=== PATIENT | male | born 1995 | race Hispanic/Latino ===

== ENCOUNTER 2018-03-28 08:33 | Emergency (ER) | payer SELFPAY | END 2018-03-28 10:38 | disposition home or self-care (01) | LOC: EDH 08:33 | DX: S93.491A Sprain of other ligament of right ankle, initial encounter (principal); S83.8X1A Sprain of other specified parts of right knee, initial encounter; E11.9 Type 2 diabetes mellitus without complications; Z88.0 Allergy status to penicillin; Z98.890 Other specified postprocedural states; Z72.0 Tobacco use; X50.9XXA Other and unspecified overexertion or strenuous movements or postures, initial encounter; Y93.89 Activity, other specified; Y92.89 Other specified places as the place of occurrence of the external cause; Y99.8 Other external cause status | CPT/HCPCS: 73562; 73610 ==

== ENCOUNTER 2018-04-09 23:17 | Emergency (ER) | payer SELFPAY ==
[2018-04-09] MEDS ORDERED: IBUPROFEN 600 MG TABLET ONE (23:38)
== END 2018-04-10 00:20 | disposition home or self-care (01) ==
LOC: EDH 23:17
DX: S43.491A Other sprain of right shoulder joint, initial encounter (principal); E11.9 Type 2 diabetes mellitus without complications; Z88.0 Allergy status to penicillin; Z98.890 Other specified postprocedural states; Z72.0 Tobacco use; W18.39XA Other fall on same level, initial encounter; Y93.89 Activity, other specified; Y92.098 Other place in other non-institutional residence as the place of occurrence of the external cause; Y99.8 Other external cause status
CPT/HCPCS: 73030

== ENCOUNTER 2018-05-14 11:25 | Emergency (ER) | payer SELFPAY ==
[2018-05-14] MEDS ORDERED: ACETAMINOPHEN EXTRA STRENGTH 500 MG TABLET ONE (12:29)
== END 2018-05-14 12:49 | disposition home or self-care (01) ==
LOC: EDH 11:25
DX: S53.491A Other sprain of right elbow, initial encounter (principal); E11.9 Type 2 diabetes mellitus without complications; Z88.0 Allergy status to penicillin; X50.0XXA Overexertion from strenuous movement or load, initial encounter; Y93.89 Activity, other specified; Y92.098 Other place in other non-institutional residence as the place of occurrence of the external cause; Y99.8 Other external cause status
CPT/HCPCS: 73080

== ENCOUNTER 2018-09-09 19:07 | Emergency (ER) | payer OTHER ==
[2018-09-09] MEDS ORDERED: IBUPROFEN 600 MG TABLET ONE (19:24)
== END 2018-09-09 20:23 | disposition home or self-care (01) ==
LOC: EDH 19:07
DX: S53.491A Other sprain of right elbow, initial encounter (principal); E11.9 Type 2 diabetes mellitus without complications; Z98.890 Other specified postprocedural states; Z88.0 Allergy status to penicillin; Z72.0 Tobacco use; X50.1XXA Overexertion from prolonged static or awkward postures, initial encounter; Y93.89 Activity, other specified; Y92.098 Other place in other non-institutional residence as the place of occurrence of the external cause; Y99.8 Other external cause status
CPT/HCPCS: 73080

== ENCOUNTER 2021-11-15 13:13 | Emergency (ER) | payer OTHER ==
[~2021-11-15] VITALS: Ht 177.8 cm; Wt 122.5 kg
[2021-11-15] MEDS ORDERED: ZINC50TA64 PO (14:24)
[2021-11-15] MEDS ORDERED: ASCO500T19 PO (14:24)
[2021-11-15] MEDS ORDERED: IBUP-2070 PO (14:24)
[2021-11-15] MEDS ORDERED: NIRM1TAB5 PO (14:24)
[2021-11-15] MEDS ORDERED: GUAIF10 PO (14:24)
[2021-11-15] MEDS ORDERED: CETI10TA57 PO (14:24)
[2021-11-15 14:27] VITALS: BP 125/85
== END 2021-11-15 14:34 | disposition home or self-care (01) ==
LOC: EDH 13:13
DX: U07.1 COVID-19 (principal); E11.9 Type 2 diabetes mellitus without complications; Z79.1 Long term (current) use of non-steroidal anti-inflammatories (NSAID); Z88.0 Allergy status to penicillin
CPT/HCPCS: 71045

== ENCOUNTER 2022-04-26 16:38 | Emergency (ER) | payer OTHER ==
[~2022-04-26] VITALS: Ht 180.3 cm; Wt 120.2 kg
[~2022-04-26 16:38] MED LIST: ASCO500T19 PO; CETI10TA57 PO; GUAIF10 PO; IBUP-2070 PO; NIRM1TAB5 PO; ZINC50TA64 PO
[2022-04-26 17:14] LABS: APPEARANCE,URINE CLEAR (CLEAR); BILIRUBIN,URINE NEGATIVE (NEGATIVE); COLOR,URINE COLORLESS (YELLOW); GLUCOSE, URINE (UA) >=1000 mg/dL (NEGATIVE); KETONES,URINE NEGATIVE (NEGATIVE); LEUKOCYTE ESTERASE ,URINE 250 Leu/uL (NEGATIVE); NITRATE,URINE NEGATIVE (NEGATIVE); OCCULT BLOOD,URINE NEGATIVE (NEGATIVE); PROTEIN,URINE NEGATIVE (NEGATIVE); UROBILINOGEN,URINE 0.2 mg/dL (0.2-1.0)
[2022-04-26 17:16] LABS: BASOPHILS % (AUTO) 0.4 % (0.0-5.0); EOSINOPHILS % (AUTO) 1.4 % (0.0-8.0); HEMATOCRIT 42.9 % (42-54); LYMPHOCYTES % (AUTO) 39.1 % (21.0-51.0); MEAN CORPUSCULAR HEMOGLOBIN 26.5 pg (27.0-33.0); MEAN CORPUSCULAR HGB CONC 33.1 g/dL (32.0-36.0); MEAN CORPUSCULAR VOLUME 80.2 fL (79-99); MONOCYTES % (AUTO) 5.8 % (3.0-13.0); NEUTROPHILS % (AUTO) 52.9 % (40.0-77.0); PLATELET COUNT (AUTO) 257 K/uL (130-400); RED BLOOD CELL COUNT(AUTO) 5.35 MIL/uL (4.50-6.20); RED CELL DISTRIBUTION WIDTH 13.2 % (11.0-15.5); WHITE BLOOD COUNT (AUTO) 9.5 K/uL (4.8-10.8)
[2022-04-26 17:17] LABS: BACTERIA,URINE RARE /HPF (None Seen); SQUAMOUS EPITHELIAL CELL,UR RARE /HPF (0-2)
[2022-04-26 17:21] LABS: POTASSIUM 3.9 mmol/L (3.5-5.1)
[2022-04-26 17:26] LABS: ALBUMIN 3.6 g/dL (3.5-5.0); TOTAL PROTEIN, SERUM 7.4 g/dL (6.0-8.3)
[2022-04-26] MEDS ORDERED: KETOROLAC 30MG VIAL (30MG/ML) IM ONE (17:30)
[2022-04-26] MEDS ORDERED: IBUP-2070 PO (17:57)
[2022-04-26 18:13] VITALS: BP 145/88
== END 2022-04-26 18:13 | disposition home or self-care (01) ==
LOC: EDH 16:38
DX: J10.1 Influenza due to other identified influenza virus with other respiratory manifestations (principal); Z20.822 Contact with and (suspected) exposure to COVID-19; E11.9 Type 2 diabetes mellitus without complications; Z79.1 Long term (current) use of non-steroidal anti-inflammatories (NSAID); Z88.0 Allergy status to penicillin
CPT/HCPCS: 99283; 87635; 80053; 85025; 87804 ×2; 81001; 87088; 36415; 96372; C9803; J1885